=== PATIENT | female | born 1990 | race Two or more races ===

== ENCOUNTER 2016-11-19 08:38 | Emergency (ER) | payer MEDICAID ==
[~2016-11-19] VITALS: Ht 160 cm; Wt 60.8 kg
[2016-11-19 11:09] VITALS: BP 124/60
== END 2016-11-19 11:00 | disposition home or self-care (01) ==
LOC: ED 08:38
DX: K80.50 Calculus of bile duct without cholangitis or cholecystitis without obstruction (principal); K21.9 Gastro-esophageal reflux disease without esophagitis
CPT/HCPCS: J1170; J1885; Q0162